=== PATIENT | female | born 1965 | race Caucasian/White ===

== ENCOUNTER 2019-05-12 14:36 | Emergency (ER) | payer MEDICAID ==
[~2019-05-12] VITALS: Ht 170.2 cm; Wt 76.3 kg
[2019-05-12] MEDS ORDERED: ondansetron/PF 4mg/2ml inj IV ONE (15:00)
[2019-05-12] MEDS ORDERED: morphine 4 MG/ML inj SYRINge IV PRN (15:00)
[2019-05-12] MEDS ORDERED: normal saline 1000ML IV soln IVB ONE (15:00)
[2019-05-12 15:50] LABS: BASOPHILS # (AUTO) 0.1 X10'3 (0-0.2); BASOPHILS % (AUTO) 1.9 % (0-1); EOSINOPHILS # (AUTO) 0.8 X10'3 (0-0.9); EOSINOPHILS % (AUTO) 10.9 % (0-6); HEMATOCRIT 39.7 % (35.0-45.0); HEMOGLOBIN 13.2 g/dl (12.0-16.0); LYMPHOCYTES # (AUTO) 1.7 X10'3 (1.1-4.8); LYMPHOCYTES % (AUTO) 24.8 % (21-51); MEAN CORPUSCULAR HEMOGLOBIN 28.6 PG (27.0-31.0); MEAN CORPUSCULAR HGB CONC 33.2 g/dL (33.0-36.5); MEAN CORPUSCULAR VOLUME 86.2 FL (78-98); MONOCYTES # (AUTO) 0.4 X10'3 (0-0.9); MONOCYTES % (AUTO) 5.4 % (2-12); PLATELET COUNT 309 X10'3 (140-440); RED BLOOD COUNT 4.61 X10'6 (4.20-5.60); RED CELL DISTRIBUTION WIDTH 14.9 % (11.5-14.5)
[2019-05-12 16:04] LABS: ALANINE AMINOTRANSFERASE 19 U/L (12-78); ALBUMIN 3.8 G/DL (3.4-5.0); ALKALINE PHOSPHATASE 77 IU/L (46-116); ANION GAP 9 (8-16); ASPARTATE AMINO TRANSFERASE 26 U/L (10-37); BILIRUBIN,TOTAL 0.3 MG/DL (0.1-1.0); BLOOD UREA NITROGEN 15 MG/DL (7-18); BUN/CREATININE RATIO 15.3 (6.6-38.0); CALCIUM 9.1 MG/DL (8.5-10.1); CHLORIDE 106 MMOL/L (99-107); CREATININE 0.98 MG/DL (0.40-0.90); GLUCOSE 98 MG/DL (70-104); POTASSIUM 3.7 MMOL/L (3.5-5.1); SODIUM 139 MMOL/L (135-145); TOTAL CARBON DIOXIDE 24.3 MMOL/L (24-32); TOTAL PROTEIN 7.5 G/DL (6.4-8.2); eGFR 59 ML/MIN
[2019-05-12 16:07] LABS: LIPASE 135 U/L (73-393); TROPONIN I < 0.04 NG/ML (0.0-0.05)
[2019-05-12 16:30] LABS: URINE HCG NEGATIVE (NEG)
[2019-05-12 16:32] LABS: CLARITY,URINE CLEAR (Clear); COLOR,URINE YELLOW (Yellow); GLUCOSE, URINE NEGATIVE (Neg); KETONES,URINE NEGATIVE (Neg); LEUKOCYTE ESTERASE ,URINE NEGATIVE (Neg); NITRITES, URINE NEGATIVE (Neg); OCCULT BLOOD,URINE NEGATIVE (Neg); PROTEIN,URINE NEGATIVE (Neg); UROBILINOGEN,URINE 0.2 E.U/dL (0.2-1.0)
[2019-05-12 16:39] LABS: UA COLLECTION TYPE CLN CATCH MIDSTREAM
--- NOTE | 2019-05-12 17:08 | NUR ---
medicated as ordered for abd. pain.
--- NOTE | 2019-05-12 18:08 | NUR ---
Pt. evaluated and discharged by provider before inspector raw quartz.
[2019-05-12 18:14] VITALS: BP 121/89
== END 2019-05-12 18:06 | disposition home or self-care (01) ==
LOC: ER 14:37
DX: R10.32 Left lower quadrant pain (principal); R07.89 Other chest pain; R61 Generalized hyperhidrosis; E03.9 Hypothyroidism, unspecified; Z90.710 Acquired absence of both cervix and uterus; Z98.890 Other specified postprocedural states
CPT/HCPCS: 36415; 74177; 80053; 81003; 81025; 83690; 84484; 85025; 87040; 93005; 96374; 96375; 99285; J2270; J2405; J7030

== ENCOUNTER 2019-06-19 10:27 | Emergency (ER) | payer MEDICAID ==
[~2019-06-19] VITALS: Ht 172.7 cm; Wt 85.0 kg
[2019-06-19 10:39] VITALS: BP 118/82
[2019-06-19] MEDS ORDERED: SULF1TAB49 PO (12:07)
== END 2019-06-19 12:19 | disposition home or self-care (01) ==
LOC: ER 10:28
DX: S60.521A Blister (nonthermal) of right hand, initial encounter (principal); S90.521A Blister (nonthermal), right ankle, initial encounter; L08.9 Local infection of the skin and subcutaneous tissue, unspecified; E03.9 Hypothyroidism, unspecified; Z90.710 Acquired absence of both cervix and uterus; Z98.890 Other specified postprocedural states; X58.XXXA Exposure to other specified factors, initial encounter; Y93.89 Activity, other specified; Y92.89 Other specified places as the place of occurrence of the external cause; Y99.8 Other external cause status
CPT/HCPCS: 99283

== ENCOUNTER 2023-07-22 21:36 | Emergency (ER) | payer MEDICAID | END 2023-07-22 22:44 | disposition left against medical advice (07) | LOC: ER 21:36 | DX: K94.00 Colostomy complication, unspecified (principal); Z53.21 Procedure and treatment not carried out due to patient leaving prior to being seen by health care provider ==

== ENCOUNTER 2023-07-24 00:59 | Emergency (ER) | payer MEDICAID ==
[~2023-07-24] VITALS: Ht 170.2 cm; Wt 54.5 kg
[2023-07-24 01:24] VITALS: TEMP 97.8
[2023-07-24 02:09] VITALS: BP 128/93; PULSE 99; RESP 16; O2SAT 100
== END 2023-07-24 02:14 | disposition home or self-care (01) ==
LOC: ER 01:00
DX: Z43.3 Encounter for attention to colostomy (principal); E03.9 Hypothyroidism, unspecified; Z90.710 Acquired absence of both cervix and uterus
CPT/HCPCS: 99281; A4421

== ENCOUNTER 2023-07-29 23:42 | Emergency (ER) | payer MEDICAID ==
[~2023-07-29] VITALS: Ht 172.7 cm; Wt 65.0 kg
[2023-07-29 23:47] VITALS: BP 123/81; PULSE 99; RESP 16; TEMP 98.6; O2SAT 99
== END 2023-07-30 00:24 | disposition home or self-care (01) ==
LOC: ER 23:43
DX: Z43.3 Encounter for attention to colostomy (principal); Z88.8 Allergy status to other drugs, medicaments and biological substances; E03.9 Hypothyroidism, unspecified; Z90.710 Acquired absence of both cervix and uterus
CPT/HCPCS: 99281; A4421

== ENCOUNTER 2023-07-31 07:22 | Emergency (ER) | payer MEDICAID ==
[~2023-07-31] VITALS: Ht 167.6 cm; Wt 59.1 kg
[2023-07-31 07:25] VITALS: TEMP 97.8
[2023-07-31] MEDS: thiamine 100mg/ml 2ml inj. IV ONE (09:00)
[2023-07-31] MEDS: diazepam inj 5 MG/ML inj. IV STA (09:00)
[2023-07-31] MEDS: ringers solution, lacted 1,000 ML IV ONE (09:00)
[2023-07-31] MEDS: folic acid 1mg/0.2ml inj IV ONE (09:03)
[2023-07-31 09:22] LABS: BASOPHILS # (AUTO) 0.1 X10'3 (0-0.2); BASOPHILS % (AUTO) 1.2 % (0-1); EOSINOPHILS # (AUTO) 0.2 X10'3 (0-0.9); EOSINOPHILS % (AUTO) 2.5 % (0-6); HEMATOCRIT 41.8 % (35.0-45.0); LYMPHOCYTES # (AUTO) 0.9 X10'3 (1.1-4.8); LYMPHOCYTES % (AUTO) 13.4 % (21-51); MEAN CORPUSCULAR HEMOGLOBIN 32.2 PG (27.0-31.0); MEAN CORPUSCULAR HGB CONC 33.4 g/dL (33.0-36.5); MEAN CORPUSCULAR VOLUME 96.3 FL (78-98); MEAN PLATELET VOLUME 6.8 FL (7.4-10.4); MONOCYTES # (AUTO) 0.4 X10'3 (0-0.9); MONOCYTES % (AUTO) 6.2 % (2-12); NEUTROPHILS # (AUTO) 4.9 X10'3 (1.8-7.7); NEUTROPHILS % (AUTO) 76.7 % (42-75); PLATELET COUNT 268 X10'3 (140-440); RED BLOOD COUNT 4.34 X10'6 (4.20-5.60); WHITE BLOOD COUNT 6.4 X10'3 (4.5-11.0)
[2023-07-31 09:24] LABS: BILIRUBIN,URINE NEGATIVE (Neg); CLARITY,URINE CLEAR (Clear); COLOR,URINE YELLOW (Yellow); GLUCOSE, URINE NEGATIVE (Neg); KETONES,URINE TRACE mg/dl (Neg); LEUKOCYTE ESTERASE ,URINE NEGATIVE (Neg); NITRITES, URINE NEGATIVE (Neg); OCCULT BLOOD,URINE TRACE-INTACT (Neg); PROTEIN,URINE TRACE mg/dl (Neg); UROBILINOGEN,URINE 0.2 E.U/dL (0.2-1.0)
[2023-07-31 09:32] LABS: UA COLLECTION TYPE CLN CATCH MIDSTREAM
[2023-07-31 09:37] LABS: ACETONE NEGATIVE (NEGATIVE)
[2023-07-31 09:52] LABS: ALANINE AMINOTRANSFERASE 12 U/L (12-78); ALBUMIN 3.7 G/DL (3.4-5.0); ALBUMIN/GLOBULIN RATIO 0.9 (1.1-1.5); ALKALINE PHOSPHATASE 85 IU/L (46-116); ANION GAP 8 (8-16); ASPARTATE AMINO TRANSFERASE 28 U/L (10-37); BILIRUBIN,TOTAL 0.9 MG/DL (0.1-1.0); BLOOD UREA NITROGEN 24 MG/DL (7-18); BUN/CREATININE RATIO 28.2 (10.0-20.0); CHLORIDE 105 MMOL/L (99-107); CREATININE 0.85 MG/DL (0.40-0.90); GLUCOSE 104 MG/DL (70-104); MAGNESIUM 1.4 MG/DL (1.5-2.4); POTASSIUM 3.5 MMOL/L (3.5-5.1); SODIUM 139 MMOL/L (135-145); TOTAL CARBON DIOXIDE 26.2 MMOL/L (24-32); TOTAL PROTEIN 7.9 G/DL (6.4-8.2); eCRCL 67 ML/MIN; eGFR 69 ML/MIN
[2023-07-31 09:52] LABS: BACTERIA,URINE 2+ /HPF (Neg)
[2023-07-31 09:54] LABS: HYALINE CASTS 0-3 /LPF (NEGATIVE)
[2023-07-31 09:57] LABS: SQUAMOUS EPITHELIAL CELL,UR MANY /LPF (FEW)
[2023-07-31 10:00] LABS: RBC,URINE 0-2 /HPF (0-2)
[2023-07-31 10:01] LABS: MUCUS STRANDS FEW /LPF (Neg)
[2023-07-31] MEDS: potassium chloride 10mEq ER tablet PO STA (10:01)
[2023-07-31 10:02] LABS: COARSE GRANULAR CAST 0-3 /LPF (NEGATIVE)
[2023-07-31 10:08] VITALS: BP 174/100; PULSE 92; RESP 16; O2SAT 98
== END 2023-07-31 10:15 | disposition home or self-care (01) ==
LOC: ER 07:22
DX: K94.00 Colostomy complication, unspecified (principal); E03.9 Hypothyroidism, unspecified; Z90.710 Acquired absence of both cervix and uterus; F10.90 Alcohol use, unspecified, uncomplicated; F15.90 Other stimulant use, unspecified, uncomplicated; Z59.00 Homelessness unspecified; Z88.8 Allergy status to other drugs, medicaments and biological substances
CPT/HCPCS: 36415; 71045; 80053; 81001; 82009; 83735; 85025; 93005; 96361; 96374; 96375; 99285; J3360; J3411; J3490; J7120

== ENCOUNTER 2023-08-06 19:38 | Emergency (ER) | payer MEDICAID ==
[~2023-08-06] VITALS: Ht 162.6 cm; Wt 78.0 kg
[2023-08-06 20:22] LABS: BASOPHILS # (AUTO) 0.1 X10'3 (0-0.2); EOSINOPHILS # (AUTO) 0.5 X10'3 (0-0.9); EOSINOPHILS % (AUTO) 7.7 % (0-6); HEMATOCRIT 38.1 % (35.0-45.0); HEMOGLOBIN 12.7 g/dl (12.0-16.0); LYMPHOCYTES % (AUTO) 33.6 % (21-51); MEAN CORPUSCULAR HEMOGLOBIN 32.2 PG (27.0-31.0); MEAN CORPUSCULAR HGB CONC 33.4 g/dL (33.0-36.5); MEAN CORPUSCULAR VOLUME 96.6 FL (78-98); MEAN PLATELET VOLUME 6.6 FL (7.4-10.4); MONOCYTES # (AUTO) 0.6 X10'3 (0-0.9); MONOCYTES % (AUTO) 9.9 % (2-12); NEUTROPHILS # (AUTO) 2.8 X10'3 (1.8-7.7); NEUTROPHILS % (AUTO) 46.8 % (42-75); PLATELET COUNT 280 X10'3 (140-440); RED BLOOD COUNT 3.95 X10'6 (4.20-5.60); RED CELL DISTRIBUTION WIDTH 14.3 % (11.5-14.5); WHITE BLOOD COUNT 5.9 X10'3 (4.5-11.0)
[2023-08-06 20:33] LABS: ALBUMIN 3.6 G/DL (3.4-5.0); ANION GAP 17 (8-16); BLOOD UREA NITROGEN 34 MG/DL (7-18); BUN/CREATININE RATIO 20.2 (10.0-20.0); CALCIUM 8.5 MG/DL (8.5-10.1); CHLORIDE 105 MMOL/L (99-107); CREATININE 1.68 MG/DL (0.40-0.90); ETHANOL 198 MG/DL (<10); GLUCOSE 170 MG/DL (70-104); SALICYLATE 1.7 MG/DL (4.0-20.0); SODIUM 141 MMOL/L (135-145); TOTAL CARBON DIOXIDE 19.5 MMOL/L (24-32); eCRCL 32 ML/MIN; eGFR 31 ML/MIN
[2023-08-06 20:36] LABS: ACETAMINOPHEN < 2.0 UG/ML (10-30)
[2023-08-06 20:42] LABS: POTASSIUM 2.7 MMOL/L (3.5-5.1)
[2023-08-06] MEDS ORDERED: potassium Cl 20 mEq SR tablet PO STA (21:09)
[2023-08-06] MEDS: OLANZapine **IM** 10 mg inj. IM STA (21:53)
[2023-08-06] MEDS ORDERED: ketamine 50 mg/ml 10ml vial IM ONE (23:15)
[2023-08-06] MEDS: normal saline 1000ml 1,000 ML IV ONE (23:38)
[2023-08-06] MEDS: Potassium Cl inj 40 MEQ in sodium chloride 0.45% 500ml 500 ML IV ONE (23:38)
[2023-08-06 23:39] LABS: CREATINE KINASE 466 U/L (26-192)
[2023-08-07] MEDS: normal saline 1000ml 1,000 ML IV ONE ×2 (01:23→02:24)
[2023-08-07 04:30] LABS: ALBUMIN 2.7 G/DL (3.4-5.0); ANION GAP 9 (8-16); BLOOD UREA NITROGEN 23 MG/DL (7-18); CALCIUM 7.2 MG/DL (8.5-10.1); CHLORIDE 112 MMOL/L (99-107); CREATININE 0.92 MG/DL (0.40-0.90); GLUCOSE 86 MG/DL (70-104); SODIUM 139 MMOL/L (135-145); TOTAL CARBON DIOXIDE 17.9 MMOL/L (24-32); eCRCL 58 ML/MIN; eGFR 63 ML/MIN
[2023-08-07 04:40] LABS: URINE AMPHETAMINE SCREEN POSITIVE (Neg); URINE BARBITUATE SCREEN NEGATIVE (Neg); URINE BENZODIAZEPINES SCREEN NEGATIVE (Neg); URINE CANNABINOID SCREEN NEGATIVE (Neg); URINE COCAINE SCREEN NEGATIVE (Neg); URINE METHADONE SCREEN NEGATIVE (Neg); URINE PHENCYCLIDINE SCREEN NEGATIVE (Neg)
[2023-08-07 04:41] LABS: POTASSIUM 5.6 MMOL/L (3.5-5.1)
[2023-08-07] MEDS: potassium CL 10mEq/100ml bag 100 ML IV ONE (05:01)
[2023-08-07 19:58] LABS: ALANINE AMINOTRANSFERASE 11 U/L (12-78); ALBUMIN 2.7 G/DL (3.4-5.0); ALBUMIN/GLOBULIN RATIO 0.8 (1.1-1.5); ALKALINE PHOSPHATASE 72 IU/L (46-116); ANION GAP 9 (8-16); ASPARTATE AMINO TRANSFERASE 19 U/L (10-37); BILIRUBIN,TOTAL 0.7 MG/DL (0.1-1.0); BLOOD UREA NITROGEN 21 MG/DL (7-18); BUN/CREATININE RATIO 22.6 (10.0-20.0); CALCIUM 8.2 MG/DL (8.5-10.1); CHLORIDE 107 MMOL/L (99-107); CREATININE 0.93 MG/DL (0.40-0.90); GLUCOSE 146 MG/DL (70-104); POTASSIUM 3.3 MMOL/L (3.5-5.1); SODIUM 137 MMOL/L (135-145); TOTAL CARBON DIOXIDE 21.5 MMOL/L (24-32); TOTAL PROTEIN 6.1 G/DL (6.4-8.2); eCRCL 57 ML/MIN; eGFR 62 ML/MIN
[2023-08-07] MEDS: chlordiazePOXIDE 25mg capsule PO ONE (20:38)
[2023-08-08] MEDS ORDERED: gabapentin 400mg capsule PO SCH
[2023-08-08] MEDS: potassium Cl 20 mEq SR tablet PO STA (05:34)
[2023-08-08 08:34] LABS: ALBUMIN 2.9 G/DL (3.4-5.0); ANION GAP 9 (8-16); BLOOD UREA NITROGEN 16 MG/DL (7-18); BUN/CREATININE RATIO 18.6 (10.0-20.0); CALCIUM 8.8 MG/DL (8.5-10.1); CHLORIDE 108 MMOL/L (99-107); CREATININE 0.86 MG/DL (0.40-0.90); GLUCOSE 120 MG/DL (70-104); MAGNESIUM 1.5 MG/DL (1.5-2.4); SODIUM 140 MMOL/L (135-145); THYROID STIMULATING HORMONE 0.56 ulU/ml (0.34-4.50); TOTAL CARBON DIOXIDE 23.1 MMOL/L (24-32); eCRCL 62 ML/MIN; eGFR 68 ML/MIN
[2023-08-08] MEDS: magnesium oxide 400mg tablet PO ONE (10:36)
[2023-08-08] MEDS: chlordiazePOXIDE 25mg capsule PO ONE ×2 (10:37→20:22)
[2023-08-08] MEDS ORDERED: LORazepam 1 MG tablet PO PRN (14:05)
[2023-08-08] MEDS: diazepam inj 5 MG/ML inj. IM ONE (21:04)
[2023-08-08] MEDS: diphenhydrAMINE 50 mg/ml inj IM ONE (21:05)
[2023-08-09] MEDS: chlordiazePOXIDE 25mg capsule PO ONE (09:47)
[2023-08-09 17:57] VITALS: TEMP 98.2
[2023-08-09] MEDS: acetaminophen 325mg tablet PO ONE (18:05)
[2023-08-09] MEDS ORDERED: diphenhydrAMINE 25mg capsule PO PRN (18:25)
[2023-08-09] MEDS ORDERED: chlordiazePOXIDE 25mg capsule PO PRN (18:25)
[2023-08-09] MEDS: diazepam 5mg tablet PO PRN (19:37)
[2023-08-10] MEDS: chlordiazePOXIDE 25mg capsule PO ONE (01:58)
[2023-08-10 08:22] VITALS: BP 114/75; PULSE 80; RESP 16; O2SAT 100
[2023-08-10] MEDS: nicotine 14mg patch - 24hr TD SCH (09:51)
== END 2023-08-10 10:36 | disposition home or self-care (01) ==
LOC: ER 19:39
DX: R45.851 Suicidal ideations (principal); Z20.822 Contact with and (suspected) exposure to COVID-19; E03.9 Hypothyroidism, unspecified; Z90.710 Acquired absence of both cervix and uterus; F15.90 Other stimulant use, unspecified, uncomplicated; Z88.8 Allergy status to other drugs, medicaments and biological substances
CPT/HCPCS: 36415; 80048; 80053; 80305; 80320; 80329; 82550; 83735; 84443; 85025; 87811; 96365; 96366; 96372; 99285; J3480; J3490; J7030; A5200

== ENCOUNTER 2023-08-11 02:30 | Emergency (ER) | payer MEDICAID ==
[~2023-08-11] VITALS: Ht 172.7 cm; Wt 65.0 kg
[2023-08-11 02:54] VITALS: BP 127/98; PULSE 99; RESP 16; TEMP 98.3; O2SAT 97
== END 2023-08-11 03:55 | disposition left against medical advice (07) ==
LOC: ER 02:31
DX: K94.09 Other complications of colostomy (principal); Z53.21 Procedure and treatment not carried out due to patient leaving prior to being seen by health care provider

== ENCOUNTER 2023-08-11 20:54 | Emergency (ER) | payer MEDICAID | END 2023-08-11 21:38 | disposition left against medical advice (07) | LOC: ER 20:55 | DX: Z93.3 Colostomy status (principal); Z53.21 Procedure and treatment not carried out due to patient leaving prior to being seen by health care provider ==

== ENCOUNTER 2023-08-25 11:28 | Emergency (ER) | payer MEDICAID ==
[~2023-08-25] VITALS: Ht 172.7 cm; Wt 62.6 kg
[2023-08-25 11:37] VITALS: BP 115/80; PULSE 96; RESP 18; TEMP 97.9; O2SAT 96
== END 2023-08-25 13:01 | disposition left against medical advice (07) ==
LOC: ER 11:28
DX: Z93.3 Colostomy status (principal); Z53.21 Procedure and treatment not carried out due to patient leaving prior to being seen by health care provider
CPT/HCPCS: A4421

== ENCOUNTER 2023-08-28 09:31 | Emergency (ER) | payer MEDICAID ==
[~2023-08-28] VITALS: Ht 172.7 cm; Wt 51.6 kg
[2023-08-28 09:55] VITALS: BP 116/85; PULSE 92; RESP 14; TEMP 98.7; O2SAT 98
[2023-08-28] MEDS ORDERED: HYDR-3686 PO (10:36)
== END 2023-08-28 10:58 | disposition home or self-care (01) ==
LOC: ER 09:32
DX: F41.9 Anxiety disorder, unspecified (principal); E03.9 Hypothyroidism, unspecified; F10.90 Alcohol use, unspecified, uncomplicated; F15.90 Other stimulant use, unspecified, uncomplicated; Z90.710 Acquired absence of both cervix and uterus; Z98.890 Other specified postprocedural states; Z59.00 Homelessness unspecified; Z88.8 Allergy status to other drugs, medicaments and biological substances
CPT/HCPCS: 99283

== ENCOUNTER 2023-10-18 18:19 | Emergency (ER) | payer MEDICAID ==
[~2023-10-18] VITALS: Ht 172.7 cm; Wt 68.2 kg
[~2023-10-18 18:19] MED LIST: BUSP15TA3 PO; NICO-687 TD; NICO-907 BC
[2023-10-18 18:35] VITALS: BP 101/67; PULSE 94; RESP 16; O2SAT 98
[2023-10-18 19:13] VITALS: TEMP 97.1
== END 2023-10-18 19:16 ==
LOC: ER 18:19
DX: Z43.3 Encounter for attention to colostomy (principal); E03.9 Hypothyroidism, unspecified; F15.90 Other stimulant use, unspecified, uncomplicated; Z88.8 Allergy status to other drugs, medicaments and biological substances; Z79.899 Other long term (current) drug therapy; Z90.710 Acquired absence of both cervix and uterus
CPT/HCPCS: 99283

== ENCOUNTER 2023-11-20 10:05 | Emergency (ER) | payer MEDICAID ==
[~2023-11-20] VITALS: Ht 172.7 cm; Wt 66.5 kg
[2023-11-20 10:09] VITALS: BP 128/82; PULSE 85; RESP 14; TEMP 98.5; O2SAT 100
[2023-11-20] MEDS: clindamycin 150mg capsule PO ONE (11:18)
[2023-11-20 11:24] LABS: BASOPHILS # (AUTO) 0.1 X10'3 (0-0.2); BASOPHILS % (AUTO) 1.3 % (0-1); EOSINOPHILS # (AUTO) 0.3 X10'3 (0-0.9); EOSINOPHILS % (AUTO) 6.1 % (0-6); HEMATOCRIT 37.5 % (35.0-45.0); HEMOGLOBIN 12.5 g/dl (12.0-16.0); LYMPHOCYTES # (AUTO) 0.9 X10'3 (1.1-4.8); MEAN CORPUSCULAR HEMOGLOBIN 32.3 PG (27.0-31.0); MEAN CORPUSCULAR HGB CONC 33.3 g/dL (33.0-36.5); MEAN PLATELET VOLUME 6.8 FL (7.4-10.4); MONOCYTES # (AUTO) 0.4 X10'3 (0-0.9); MONOCYTES % (AUTO) 9.1 % (2-12); NEUTROPHILS # (AUTO) 2.5 X10'3 (1.8-7.7); NEUTROPHILS % (AUTO) 61.5 % (42-75); PLATELET COUNT 206 X10'3 (140-440); RED BLOOD COUNT 3.86 X10'6 (4.20-5.60); RED CELL DISTRIBUTION WIDTH 15.8 % (11.5-14.5); WHITE BLOOD COUNT 4.1 X10'3 (4.5-11.0)
[2023-11-20 11:36] LABS: ALBUMIN 3.3 G/DL (3.4-5.0); ANION GAP 13 (8-16); BLOOD UREA NITROGEN 20 MG/DL (7-18); BUN/CREATININE RATIO 24.7 (10.0-20.0); CHLORIDE 103 MMOL/L (99-107); CREATININE 0.81 MG/DL (0.40-0.90); GLUCOSE 104 MG/DL (70-104); POTASSIUM 3.1 MMOL/L (3.5-5.1); SODIUM 137 MMOL/L (135-145); TOTAL CARBON DIOXIDE 21.3 MMOL/L (24-32); eCRCL 76 ML/MIN; eGFR 73 ML/MIN
== END 2023-11-20 11:50 | disposition home or self-care (01) ==
LOC: ER 10:06
DX: L03.211 Cellulitis of face (principal); B95.7 Other staphylococcus as the cause of diseases classified elsewhere; F10.90 Alcohol use, unspecified, uncomplicated; E03.9 Hypothyroidism, unspecified; Z79.899 Other long term (current) drug therapy; Z90.710 Acquired absence of both cervix and uterus; Z98.890 Other specified postprocedural states; Z59.00 Homelessness unspecified
CPT/HCPCS: 36415; 80048; 85025; 99283

== ENCOUNTER 2023-11-29 02:56 | Emergency (ER) | payer MEDICAID ==
[~2023-11-29] VITALS: Ht 172.7 cm; Wt 63.3 kg
[2023-11-29 03:00] VITALS: BP 138/90; PULSE 97; O2SAT 98
[2023-11-29 03:38] VITALS: RESP 14
[2023-11-29] MEDS: ketorolac trometh 30MG/ML vial 30 MG/ML VIAL IM ONE (03:38)
[2023-11-29 03:45] VITALS: TEMP 98.2
== END 2023-11-29 03:46 | disposition home or self-care (01) ==
LOC: ER 02:57
DX: H00.12 Chalazion right lower eyelid (principal); E03.9 Hypothyroidism, unspecified; F10.90 Alcohol use, unspecified, uncomplicated; F15.90 Other stimulant use, unspecified, uncomplicated; Z88.8 Allergy status to other drugs, medicaments and biological substances; Z79.899 Other long term (current) drug therapy; Z90.710 Acquired absence of both cervix and uterus; Z98.890 Other specified postprocedural states; Z59.00 Homelessness unspecified
CPT/HCPCS: 96372; 99283; J1885